=== PATIENT | male | born 2005 | race African-American/Black ===

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

== ENCOUNTER 2025-06-26 09:57 | Emergency (ER) | payer OTHER, SELFPAY | END 2025-06-26 11:33 | disposition home or self-care (01) | LOC: NAV ERS 09:57 | DX: S60.410A Abrasion of right index finger, initial encounter (principal); S60.412A Abrasion of right middle finger, initial encounter; S60.414A Abrasion of right ring finger, initial encounter; W22.09XA Striking against other stationary object, initial encounter | CPT/HCPCS: 99283 ==